=== PATIENT | female | born 1950 | race Caucasian/White ===

== ENCOUNTER → 2018-11-09 11:31 | Outpatient (CLI) | payer OTHER, SELFPAY ==
--- NOTE | 2018-11-09 | DI.MG.S_ITS ---
BILATERAL DIGITAL SCREENING MAMMOGRAM 3D/2D WITH CAD: 11/09/2018 Comparison is made to exams dated: 05/17/2016 mammogram, 08/21/2012 mammogram - [facility], and 03/18/2010 mammogram - [facility]. There are scattered fibroglandular elements in both breasts. Current study was also evaluated with a Computer Aided Detection (CAD) system. No significant masses, calcifications, or other findings are seen in either breast. There has been no significant interval change. IMPRESSION: NEGATIVE There is no mammographic evidence of malignancy. A 1 year screening mammogram is recommended. This exam was interpreted at Station ID: [id number]. NOTE: For mammograms, a report in lay terms will be sent to the patient. Approximately 15% of breast malignancies will not be visualized mammographically. In the management of a palpable breast mass, a negative mammogram must not discourage biopsy of a clinically suspicious lesion. Electronically Signed By: Dorys awan/sampson:11/09/2018 14:24:51 letter sent: Normal Exam ACR BI-RADS Category 1: Negative 3341F
== END ==
PROVIDERS: Family Provider Internal Medicine; PCP Internal Medicine; Visit Provider Internal Medicine
DX: Z12.31 Encounter for screening mammogram for malignant neoplasm of breast (principal)
CPT/HCPCS: 77063; 77067

== ENCOUNTER 2020-04-11 17:55 | Emergency (ER) | payer OTHER, SELFPAY ==
[2020-04-11 17:55] VITALS: BP 127/67; PULSE 93; RESP 22; TEMP 36.6; O2SAT 100
--- NOTE | 2020-04-11 18:00 | DI.CT.S_ITS ---
PROCEDURE: CT HEAD/BRAIN WO CON INDICATIONS: trauma TECHNIQUE: Noncontrast 4.5 mm thick angled axial sections acquired from the foramen magnum to the vertex, with coronal and sagittal reformats. For radiation dose reduction, the following was used: automated exposure control, adjustment of mA and/or kV according to patient size. COMPARISON: None. FINDINGS: Image quality: Excellent. CSF spaces: Basal cisterns are patent. No extra-axial fluid collections. The ventricles are symmetric in size and shape. Brain: No intracranial bleeds or masses. There is cerebral volume loss for age, with resultant ventricular and sulcal prominence. There are periventricular and deep white matter chronic small vessel ischemic changes. There is intracranial internal carotid artery atherosclerosis. Skull and face: Right posterior parietal scalp hematoma and swelling is seen. No acute skull fracture. Calvarium and visualized facial bones appear intact, without suspicious lesions. Sinuses: Visualized sinuses and mastoids are clear. IMPRESSION: 1. No CT evidence of acute intracranial pathology. 2. Right posterior parietal scalp hematoma and swelling. No acute skull fracture. Dictated by: Fracisco Miranda M.D. on 04/11/2020 at 18:27 Approved by: Fracisco Miranda M.D. on 04/11/2020 at 18:27
--- NOTE | 2020-04-11 18:00 | DI.CT.S_ITS ---
PROCEDURE: CT CERVICAL SPINE WO CON INDICATIONS: trauma TECHNIQUE: Noncontrast 3 mm thick sections acquired from the skull base to the T4 level. Sagittal and coronal reformats were then constructed. For radiation dose reduction, the following was used: automated exposure control, adjustment of mA and/or kV according to patient size. COMPARISON: None. FINDINGS: Image quality: Excellent. Bones: No fractures or dislocations. Degenerative endplate changes are noted at C3-4, C6-7 and C7-T1 levels with decreased intervertebral disc space and suggestion of broad-based disc bulge. Visualized superior ribs are intact. Soft tissues: Prevertebral soft tissues are normal in thickness. No paravertebral hematomas. No apical pneumothoraces. IMPRESSION: 1. No acute cervical spine fracture or or dislocation. 2. Degenerative disc disease throughout cervical spine as above. Dictated by: Fracisco Miranda M.D. on 04/11/2020 at 18:31 Approved by: Fracisco Miranda M.D. on 04/11/2020 at 18:32
[2020-04-11] MEDS: ONDANSETRON 4 MG/2 ML INJ (18:11)
[2020-04-11 18:14] LABS: Add Manual Diff / Slide Review NO; Basophils Absolute Auto 0 /uL (0-100); Basophils Percent Auto 0.2 % (0-2); Eosinophils Absolute Auto 100 /uL (0-450); Eosinophils Percent Auto 1.1 % (2-4); Hematocrit 38.2 % (36-46); Hemoglobin 13.4 g/dL (12.0-16.0); Lymphocytes Absolute Auto 2100 /uL (1100-4500); Lymphocytes Percent Auto 24.7 % (25-40); Mean Corpuscular HGB Conc 35.2 % (30-36); Mean Corpuscular Hemoglobin 32.8 PG (26-34); Mean Corpuscular Volume 93.2 fL (80-100); Monocytes Absolute Auto 800 /uL (0-900); Monocytes Percent Auto 9.1 % (3-14); Neutrophils Absolute Auto 5400 /uL (1500-7000); Neutrophils Percent Auto 64.9 % (50-75); Platelet Count 306 X10^3/uL (150-400); Red Blood Cell Count 4.09 X10^6/uL (4.0-5.2); Red Cell Distribution Width 13.4 % (11.6-14.8); White Blood Cell Count 8.4 X10^3/uL (4.5-11.0)
[2020-04-11 18:27] VITALS: BP 144/71; PULSE 93; RESP 21; O2SAT 99
[2020-04-11 18:28] LABS: Alanine Aminotransferase 22 IU/L (<35); Albumin Globulin Ratio 1.4 (1.0-2.8); Alkaline Phosphatase 45 U/L (38-126); Aspartate Aminotransferase 37 IU/L (14-36); BUN Creatinine Ratio 17.7 (6-22); Bilirubin Total 0.3 mg/dL (0.2-1.3); Blood Urea Nitrogen 14 mg/dL (7-17); Calcium 9.6 mg/dL (8.4-10.2); Carbon Dioxide 26 mmol/L (22-32); Chloride 104 mmol/L (98-107); Estimated Glomerular Filt Rate > 60.0 mL/min (>60); Globulin 2.9 g/dL (1.7-4.1); Glucose 92 mg/dL (80-110); HEMOLYSIS < 15 (0-50); Potassium 3.8 mmol/L (3.4-5.1); Sodium 139 mmol/L (137-145); Total Protein 6.9 g/dL (6.3-8.2)
[2020-04-11 18:39] LABS: Troponin I < 0.012 ng/mL (0.01-0.034)
[2020-04-11] MEDS: METOCLOPRAMIDE 10 MG/2 ML INJ IV (18:46)
[2020-04-11] MEDS: SODIUM CHLORIDE 0.9% 1,000 ML 1000 ML IV (18:47)
[2020-04-11 19:00] VITALS: BP 130/69; PULSE 91; RESP 16; O2SAT 96
--- NOTE | 2020-04-11 19:22 | ED_ITS ---
HPI - Syncope General Chief Complaint: Trauma Stated Complaint: head injury/syncopal episode Time Seen by Provider: 04/11/20 17:59 Source: EMS Mode of arrival: EMS Limitations: no limitations History of Present Illness HPI narrative: 70-year-old woman with no specific medical history when out for a walk this afternoon and apparently was found lying on the path unknown down time unknown mechanism of fall and no recollection of events. Specific complaint includes only tenderness to the posterior part of her head where she has got a small laceration and moderate hematoma. She arrived via medics to the emergency room with C-collar in place. Perseverating questions and somewhat slowed overall but no other localizing complaints or symptoms. Her last memory is early this morning Related Data Previous Rx's Medication Instructions Recorded ondansetron 4 mg PO Q8H PRN #20 tab 04/11/20 Allergies Allergy/AdvReac Type Severity Reaction Status Date / Time aspirin Allergy Unknown Verified 04/11/20 18:13 Sulfa (Sulfonamide Allergy Unknown Verified 04/11/20 18:13 Antibiotics) Review of Systems Review of Systems ROS Unobtainable: Unobtainable due to mental status/LOC Exam Narrative Exam Narrative: General: Healthy appearing, resting calmly and quietly complaining of head pain with perseverating questions and memory loss regarding events. Initial GCS is 14 HEENT: Moist mucous membranes, normal sclera with reactive pupils, right occiput with 1 cm partial-thickness laceration and hematoma with bleeding controlled Neck: supple, no tenderness to palpation along cervical spine Respiratory: Lungs are clear to auscultation, no wheezing no rales no rhonchi. Full and symmetrical air movement Cardiac: Regular rate and rhythm no murmurs no bruits Abdomen: Soft nontender good bowel tones, no flank pain Skin: Warm and dry, no rashes Neurologic: Grossly neurologically intact with no obvious asymmetries or abnormalities Extremities: No trauma, well perfused Psych: Cooperative, retrograde amnesia for at least 12 hours Initial Vital Signs Initial Vital Signs: Vital Signs Temperature 97.8 F 04/11/20 17:55 Pulse Rate 93 H 04/11/20 17:55 Respiratory Rate 22 04/11/20 17:55 Blood Pressure 127/67 04/11/20 17:55 Pulse Oximetry 100 04/11/20 17:55 Course Orders Ordered: ED Orders 04/11/20 18:00 CT cervical spine wo con Stat CT head/brain wo con Stat Complete Blood Count AUTO DIFF Stat Comprehensive Metabolic Panel Stat Troponin I Stat Urinalysis and Microscopic Stat 04/11/20 18:38 EKG-12 Lead Stat Discontinued Medications Sodium Chloride (Normal Saline 0.9%) 1,000 mls @ 1,000 mls/hr IV BOLUS ONE Stop: 04/11/20 19:37 Last Admin: 04/11/20 18:47 Dose: 1,000 mls/hr Documented by: LEVI Ketorolac Tromethamine (Toradol) 15 mg IV NOW ONE Stop: 04/11/20 19:34 Last Admin: 04/11/20 19:44 Dose: 15 mg Documented by: LEVI Metoclopramide HCl (Reglan) 10 mg IV NOW ONE Stop: 04/11/20 18:39 Last Admin: 04/11/20 18:46 Dose: 10 mg Documented by: LEVI Vital Signs Vital signs: Vital Signs - 8 hr 04/11/20 17:55 04/11/20 18:27 04/11/20 19:00 Temperature 97.8 F Pulse Rate 93 H 93 H 91 H Respiratory Rate 22 21 16 Blood Pressure 127/67 Blood Pressure [Left Arm] 144/71 H 130/69 Pulse Oximetry 100 99 96 04/11/20 19:30 Temperature Pulse Rate 93 H Respiratory Rate 16 Blood Pressure Blood Pressure [Left Arm] 127/61 Pulse Oximetry 98 MDM - Syncope Medical Records Attestation: I reviewed the patient's medical records. Lab Data Attestation: I reviewed the patient's lab results. Result diagrams: 04/11/20 18:00 04/11/20 18:00 Labs: Lab Results 04/11/20 04/11/20 Range/Units 18:00 18:00 WBC 8.4 (4.5-11.0) X10^3/uL RBC 4.09 (4.0-5.2) X10^6/uL Hgb 13.4 (12.0-16.0) g/dL Hct 38.2 (36-46) % MCV 93.2 (80-100) fL MCH 32.8 (26-34) PG MCHC 35.2 (30-36) % RDW 13.4 (11.6-14.8) % Plt Count 306 (150-400) X10^3/uL Neut % (Auto) 64.9 (50-75) % Lymph % (Auto) 24.7 L (25-40) % [place] % (Auto) 9.1 (3-14) % Eos % (Auto) 1.1 L (2-4) % Baso % (Auto) 0.2 (0-2) % Neut # (Auto) 5400 (9142-1105) /uL Lymph # (Auto) 2100 (9412-1339) /uL [place] # (Auto) 800 (0-900) /uL Eos # (Auto) 100 (0-450) /uL Baso # (Auto) 0 (0-100) /uL Sodium 139 (137-145) mmol/L Potassium 3.8 (3.4-5.1) mmol/L Chloride 104 (98-107) mmol/L Carbon Dioxide 26 (22-32) mmol/L BUN 14 (7-17) mg/dL Creatinine 0.79 (0.52-1.04) mg/dL Estimated GFR > 60.0 (>60) mL/min BUN/Creatinine Ratio 17.7 (6-22) Glucose 92 (80-110) mg/dL Calcium 9.6 (8.4-10.2) mg/dL Total Bilirubin 0.3 (0.2-1.3) mg/dL AST 37 H (14-36) IU/L ALT 22 (<35) IU/L Alkaline Phosphatase 45 (38-126) U/L Troponin I < 0.012 (0.01-0.034) ng/mL Total Protein 6.9 (6.3-8.2) g/dL Albumin 4.0 (3.5-5.0) g/dL Globulin 2.9 (1.7-4.1) g/dL Albumin/Globulin Ratio 1.4 (1.0-2.8) Imaging Data CT scan - head: Radiologist's Impression: No CT evidence of acute intracranial pathology Right posterior parietal scalp hematoma without skull fracture Dr Fracisco Miranda CT - cervical spine: Radiologist's Impression: No acute cervical spine fracture or dislocation Degenerative disc disease throughout cervical spine Dr Fracisco Miranda ECG Data Attestation: I personally reviewed and interpreted this ECG as follows: Interpretation: Sinus rhythm at a rate of 83 Normal axis normal intervals No acute ischemic changes MDM Narrative Medical decision making narrative: Healthy 70-year-old woman with an unexplained fall significant enough she has a severe concussion with retrograde amnesia without subdural or intracranial bleeding. Workup is entirely negative for infec tion, stroke, acute coronary syndrome or other life-threatening entities that might explain a syncopal episode. Hematoma and small laceration to the occiput. Hair is braided over the incision and glued in place. The laceration is not a complete thickness laceration. She has no other immediately apparent trauma appreciated today. Reviewed signs and symptoms of concussion as well as postconcussion syndrome with patient and her . At this time she is safe for home discharge Discharge Plan Departure Patient Disposition: Home Clinical Impression: Fall Qualifiers: Encounter type: initial encounter Qualified Code(s): W19.XXXA - Unspecified fall, initial encounter Concussion Qualifiers: Encounter type: initial encounter Loss of consciousness presence/duration: without LOC Qualified Code(s): S06.0X0A - Concussion without loss of consciousness, initial encounter Laceration of head Qualifiers: Encounter type: initial encounter Location of open wound of head: scalp Foreign body presence: without foreign body Qualified Code(s): S01.01XA - Laceration without foreign body of scalp, initial encounter Instructions: DI for Postconcussion Syndrome Activity Restrictions/Additional Instructions: Thank you for coming in today I am sorry you had this fall and it is a little unusual that we have absolutely no explanation for what happened. Fortunately, I am not finding any dramatic her life-threatening diagnoses to associate with the fall. Specifically, there w no bleeding into your brain, you did not have any significant injury to your neck or cervical spine, I am not see ing any signs or symptoms of a stroke, overwhelming infection, or heart attack or heart attack like syndrome. You do have a contusion to the back of your head and the skin has split a bit. I abraded your hair over the wound and used skin glue to hold the wound closed with the hair supporting it. It is okay to let water wash over your head and I would encourage you to wash the rest of the blood out when you get home tonight. Please do not pick at the area that is glued. I suspect it will work its way out in approximately 5-7 days as the skin heals nicely. You have had enough of a concussion that a expect that you will also experience some postconcussion syndrome. Typically this includes nausea, memory loss, emotional lability, frustration, and significant fatigue. I typically expected to last for as long as it takes all of your physical ailments to resolved as well. I will give you some Zofran to help with the nausea. Using 400 mg of ibuprofen (2 [id number] pills) and 1 Tylenol every 6 hours can be very helpful in controlling pain. Using an ice pack to the back of your head for a day of to may also be helpful with the physical pain If you develop new or worsening symptoms, please return to the emergency room for further evaluation I hope you heal quickly Prescriptions: New ondansetron 4 mg tablet,disintegrating 4 mg PO Q8H PRN (Reason: nausea and vomiting) Qty: 20 RF: 0 Referrals: Nitin James MD [Primary Care Provider] -
[2020-04-11 19:30] VITALS: BP 127/61; PULSE 93; RESP 16; O2SAT 98
[2020-04-11] MEDS: KETOROLAC 60 MG/2 ML VIAL 15 MG IV (19:44)
[2020-04-11 21:14] VITALS: BP 116/63; PULSE 95; RESP 18; O2SAT 97
== END 2020-04-11 21:15 | disposition home or self-care (01) ==
PROVIDERS: Emergency Provider Emergency Medicine; Family Provider Internal Medicine
DX: S06.0X0A Concussion without loss of consciousness, initial encounter (principal); S01.01XA Laceration without foreign body of scalp, initial encounter; W19.XXXA Unspecified fall, initial encounter
CPT/HCPCS: 36415; 70450; 72125; 80053; 84484; 85025; 93005; 96361; 96374; 96375; 99284; J1885; J2405; J2765

== ENCOUNTER → 2020-09-24 12:22 | Outpatient (CLI) | payer OTHER, SELFPAY | PROVIDERS: Family Provider Internal Medicine; PCP Student in an Organized Health Care Education/Training Program; Referring Provider Student in an Organized Health Care Education/Training Program; Visit Provider Student in an Organized Health Care Education/Training Program | DX: Z78.0 Asymptomatic menopausal state (principal) | CPT/HCPCS: 77080 ==

== ENCOUNTER → 2020-10-26 16:59 | Outpatient (CLI) | payer OTHER, SELFPAY ==
--- NOTE | 2020-10-26 17:01 | DI.MG.S_ITS ---
BILATERAL DIGITAL SCREENING MAMMOGRAM 3D/2D WITH CAD: 10/26/2020 CLINICAL: Routine screening. Family history of breast cancer. Comparison is made to exams dated: 11/09/2018 mammogram, 05/17/2016 mammogram, and 08/21/2012 mammogram - [facility]. There are scattered fibroglandular elements in both breasts. Current study was also evaluated with a Computer Aided Detection (CAD) system. No significant masses, calcifications, or other findings are seen in either breast. There has been no significant interval change. IMPRESSION: NEGATIVE There is no mammographic evidence of malignancy. A 1 year screening mammogram is recommended. This exam was interpreted at Station ID: [id number]. NOTE: For mammograms, a report in lay terms will be sent to the patient. Approximately 15% of breast malignancies will not be visualized mammographically. In the management of a palpable breast mass, a negative mammogram must not discourage biopsy of a clinically suspicious lesion. Electronically Signed By: Roger austin/sampson:10/27/2020 08:41:39 letter sent: Normal Exam ACR BI-RADS Category 1: Negative 3341F
== END ==
PROVIDERS: Family Provider Internal Medicine; PCP Student in an Organized Health Care Education/Training Program; Referring Provider Student in an Organized Health Care Education/Training Program; Visit Provider Student in an Organized Health Care Education/Training Program
DX: Z12.31 Encounter for screening mammogram for malignant neoplasm of breast (principal); Z80.3 Family history of malignant neoplasm of breast
CPT/HCPCS: 77063; 77067